=== PATIENT | female | born 1950 | race Caucasian/White ===

== ENCOUNTER 2017-01-09 19:00 | Inpatient (IN) | payer BC, MEDICARE ==
[~2017-01-09] VITALS: Ht 154.9 cm; Wt 84.4 kg
[~2017-01-09 19:00] MED LIST: ALPR-138 PO; AMBI5TAB PO; ASPI81 PO; FLECTOR PATCH ID; GLUC500C56 PO; TAB-TAB PO; VITA250T32 PO; [UNRECOGNIZED DRUG - CODE] PO; [UNRECOGNIZED DRUG - OTHER] PO
[2017-01-09 19:17] VITALS: BP 142/78; PULSE 122; RESP 20; TEMP 97.8; O2SAT 95
--- NOTE | 2017-01-09 19:32 | PD ---
HPI Chief Complaint: Psychiatric Symptoms Time Seen by Provider: 19:10 Travel History International Travel<30 days: No Contact w/Intl Traveler<30days: No Traveled to known affect area: No History of Present Illness HPI 66-year-old white female presents to emergency department under Loving act by PD. The patient allegedly had made homicidal statements at home after arguing with her sister and mother. She been living with her mother for approximately 25 years. The patient consumed a pint of Titos Vodka today. The patient alleges an argument with her mother over a stray cat that she has been feeding. Patient also contents her sister has a history of paranoid schizophrenia and calls the police on her routine basis when she is argument with her mother. Patient denies any suicidal homicidal ideation. She admits to recent alcohol consumption. She denies any drugs. No tobacco. Denies any medical complaints. PFSH Past Medical History Narrative Medical Diabetes type 2 Cancer: No Cardiovascular Problems: No Diabetes: Yes (TYPE 2. PER PATIENT) Glaucoma: No Hepatitis: No Hiatal Hernia: No Hypertension: No Psychiatric: No (NO PREVIOUS HISTORY) Respiratory: No Seizures: No Thyroid Disease: No Tetanus Vaccination: < 5 Years Past Surgical History Narrative Surgical Tonsillectomy Oral Surgery: Yes (TONSILLECTOMY) Pacemaker: No Other Surgery: Yes Social History Alcohol Use: Yes (OCCAS.) Tobacco Use: Yes (QUIT 20M0S.) Substance Use: Yes (ON OCCASION) Allergies-Medications (Allergen,Severity, Reaction): Coded Allergies: No Known Allergies (Verified , 07/14/13) Uncoded Allergies: UNKNOWN PAIN MED (Adverse Reaction, Severe, VOMITING, 09/06/08) Reported Meds & Prescriptions Reported Meds & Active Scripts Active Reported Coq-10 (Coenzyme Q10 (Ubidecarenone)) 30 Mg Cap [Flector Patch] 1 Patch ID EVERY OTHER DAY Glucosamine Sulfate/Chondroitin Sulfate (Glucosamine/Chondroitin) Tab 1 Tab PO DAILY Vitamin C (Ascorbic Acid) 250 Mg Tab 250 Mg PO DAILY Multivitamin (Multivitamins) 1 Tab Tab 1 Tab PO DAILY [Lycene] 1 Tab PO DAILY Aspirin 81 Mg Tab 81 Mg PO DAILY Xanax (Alprazolam) 0.25 Mg Tab 0 PO PRN UNKNOWN DOSE Review of Systems General / Constitutional: No: Fever Eyes: No: Visual changes HENT: No: Headaches Cardiovascular: No: Chest Pain or Discomfort Respiratory: No: Shortness of Breath Gastrointestinal: No: Abdominal Pain Genitourinary: No: Dysuria Musculoskeletal: No: Pain Skin: No Rash Neurologic: No: Weakness Psychiatric: Positive: Depression, Mood Disorder, No: Anxiety, Suicidal Ideations, Disorder of Thought, Substance Abuse, Homicidal Ideation Endocrine: No: Polydipsia Hematologic/Lymphatic: No: Easy Bruising Physical Exam Narrative GENERAL: Well-nourished, well-developed patient. Patient is allowed. Hard to redirect at times. SKIN: Warm and dry. HEAD: Normocephalic and atraumatic. EYES: No scleral icterus. No injection or drainage. ENT: No nasal drainage noted. Mucous membranes pink. Airway patent. NECK: Supple, trachea midline. Moves head freely without obvious discomfort. CARDIOVASCULAR: Regular rate and rhythm without murmurs, gallops, or rubs. RESPIRATORY: Breath sounds equal bilaterally. No accessory muscle use. GASTROINTESTINAL: Abdomen soft, non-tender, nondistended. EXTREMITIES: No cyanosis or edema. BACK: Nontender without obvious deformity. No CVA tenderness. NEURO: Patient is alert and oriented. no sensorimotor deficits. Nonfocal. Normal speech. PSYCH: No delusions. No auditory or visual hallucinations. Insight good, judgment poor Data Data Last Documented VS Vital Signs Date Time Temp Pulse Resp B/P (MAP) Pulse Ox O2 Delivery O2 Flow Rate FiO2 01/09/17 19:17 97.8 122 20 142/78 (99) 95 Room Air Orders Orders Complete Blood Count With Diff (01/09/17 19:08) Comprehensive Metabolic Panel (01/09/17 19:08) Urinalysis - C+S If Indicated (01/09/17 19:08) Psych Screen (01/09/17 19:08) Drug Screen, Random Urine (01/09/17 19:08) Alcohol (Ethanol) (01/09/17 19:08) Salicylates (Aspirin) (01/09/17 19:08) Tylenol (Acetaminophen) (01/09/17 19:08) Labs Laboratory Tests Test 01/09/17 19:15 White Blood Count 7.6 TH/MM3 Red Blood Count 5.56 MIL/MM3 Hemoglobin 17.1 GM/DL Hematocrit 50.0 % Mean Corpuscular Volume 90.0 FL Mean Corpuscular Hemoglobin 30.8 PG Mean Corpuscular Hemoglobin Concent 34.3 % Red Cell Distribution Width 13.4 % Platelet Count 217 TH/MM3 Mean Platelet Volume 8.2 FL Neutrophils (%) (Auto) 66.5 % Lymphocytes (%) (Auto) 22.5 % Monocytes (%) (Auto) 8.8 % Eosinophils (%) (Auto) 1.7 % Basophils (%) (Auto) 0.5 % Neutrophils # (Auto) 5.0 TH/MM3 Lymphocytes # (Auto) 1.7 TH/MM3 Monocytes # (Auto) 0.7 TH/MM3 Eosinophils # (Auto) 0.1 TH/MM3 Basophils # (Auto) 0.0 TH/MM3 CBC Comment DIFF FINAL Differential Comment Urine Color LIGHT-YELLOW Urine Turbidity CLEAR Urine pH 5.5 Urine Specific [place] 1.004 Urine Protein 30 mg/dL Urine Glucose (UA) 1000 mg/dL Urine Ketones NEG mg/dL Urine Occult Blood NEG Urine Nitrite NEG Urine Bilirubin NEG Urine Urobilinogen LESS THAN 2.0 MG/DL Urine Leukocyte Esterase SMALL Urine WBC 4 /hpf Microscopic Urinalysis Comment CULT NOT INDICATED Blood Urea Nitrogen 16 MG/DL Creatinine 0.78 MG/DL Random Glucose 116 MG/DL Total Protein 7.6 GM/DL Albumin 3.9 GM/DL Calcium Level 10.2 MG/DL Alkaline Phosphatase 94 U/L Aspartate Amino Transf (AST/SGOT) 62 U/L Alanine Aminotransferase (ALT/SGPT) 90 U/L Total Bilirubin 0.5 MG/DL Sodium Level 142 MEQ/L Potassium Level 4.0 MEQ/L Chloride Level 110 MEQ/L Carbon Dioxide Level 19.8 MEQ/L Anion Gap 12 MEQ/L Estimat Glomerular Filtration Rate 74 ML/MIN Salicylates Level LESS THAN 1.7 MG/DL Urine Opiates Screen NEG Acetaminophen Level LESS THAN 2.0 MCG/ML Urine Barbiturates Screen NEG Urine Amphetamines Screen NEG Urine Benzodiazepines Screen NEG Urine Cocaine Screen NEG Urine Cannabinoids Screen NEG Ethyl Alcohol Level 204 MG/DL MDM Medical Decision Making Medical Screen Exam Complete: Yes Emergency Medical Condition: Yes Medical Record Reviewed: Yes Interpretation(s) Laboratory Tests Test 01/09/17 19:15 White Blood Count 7.6 TH/MM3 Red Blood Count 5.56 MIL/MM3 Hemoglobin 17.1 GM/DL Hematocrit 50.0 % Mean Corpuscular Volume 90.0 FL Mean Corpuscular Hemoglobin 30.8 PG Mean Corpuscular Hemoglobin Concent 34.3 % Red Cell Distribution Width 13.4 % Platelet Count 217 TH/MM3 Mean Platelet Volume 8.2 FL Neutrophils (%) (Auto) 66.5 % Lymphocytes (%) (Auto) 22.5 % Monocytes (%) (Auto) 8.8 % Eosinophils (%) (Auto) 1.7 % Basophils (%) (Auto) 0.5 % Neutrophils # (Auto) 5.0 TH/MM3 Lymphocytes # (Auto) 1.7 TH/MM3 Monocytes # (Auto) 0.7 TH/MM3 Eosinophils # (Auto) 0.1 TH/MM3 Basophils # (Auto) 0.0 TH/MM3 CBC Comment DIFF FINAL Differential Comment Urine Color LIGHT-YELLOW Urine Turbidity CLEAR Urine pH 5.5 Urine Specific [place] 1.004 Urine Protein 30 mg/dL Urine Glucose (UA) 1000 mg/dL Urine Ketones NEG mg/dL Urine Occult Blood NEG Urine Nitrite NEG Urine Bilirubin NEG Urine Urobilinogen LESS THAN 2.0 MG/DL Urine Leukocyte Esterase SMALL Urine WBC 4 /hpf Microscopic Urinalysis Comment CULT NOT INDICATED Blood Urea Nitrogen 16 MG/DL Creatinine 0.78 MG/DL Random Glucose 116 MG/DL Total Protein 7.6 GM/DL Albumin 3.9 GM/DL Calcium Level 10.2 MG/DL Alkaline Phosphatase 94 U/L Aspartate Amino Transf (AST/SGOT) 62 U/L Alanine Aminotransferase (ALT/SGPT) 90 U/L Total Bilirubin 0.5 MG/DL Sodium Level 142 MEQ/L Potassium Level 4.0 MEQ/L Chloride Level 110 MEQ/L Carbon Dioxide Level 19.8 MEQ/L Anion Gap 12 MEQ/L Estimat Glomerular Filtration Rate 74 ML/MIN Salicylates Level LESS THAN 1.7 MG/DL Urine Opiates Screen NEG Acetaminophen Level LESS THAN 2.0 MCG/ML Urine Barbiturates Screen NEG Urine Amphetamines Screen NEG Urine Benzodiazepines Screen NEG Urine Cocaine Screen NEG Urine Cannabinoids Screen NEG Ethyl Alcohol Level 204 MG/DL Differential Diagnosis MDM: High Differential diagnoses: Schizophrenia, schizoaffective disorder, bipolar, anxiety, depression, adjustment reaction, mood disorder NOS, ODD, depressive disorder NOS, dementia, dementia with agitation, psychosis NOS, substance induced mood disorder, DMDD, Asperger syndrome, infection,electrolyte abnormality, malingering. Narrative Course Mental health screening discussed with the patient. Psychiatric screen ordered. Patient's been medically cleared. This is alcohol induced mood disorder Diagnosis Primary Impression: Medical clearance for psychiatric admission Additional Impression: Alcohol-induced mood disorder Condition: Stable Justin Vela Jan 09, 2017 19:32
[2017-01-09 19:37] LABS: BASOPHIL % 0.5 % (0.0-2.0); EOSINOPHIL # 0.1 TH/MM3 (0-0.4); EOSINOPHIL % 1.7 % (0.0-4.0); HEMO FLAGS DIFF FINAL; LYMPH % 22.5 % (9.0-44.0); LYMPHOCYTE # 1.7 TH/MM3 (1.0-4.8); MEAN CORPUSCULAR HEMOGLOBIN 30.8 PG (27.0-34.0); MEAN CORPUSCULAR HGB CONC 34.3 % (32.0-36.0); MONO % 8.8 % (0.0-8.0); NEUT % 66.5 % (16.0-70.0); PLATELET COUNT 217 TH/MM3 (150-450); RED BLOOD COUNT 5.56 MIL/MM3 (4.00-5.30); RED CELL DISTRIBUTION WIDTH 13.4 % (11.6-17.2); WHITE BLOOD COUNT 7.6 TH/MM3 (4.0-11.0)
[2017-01-09 20:01] LABS: BLOOD, URINE NEG (NEG); COMMENT (UR) CULT NOT INDICATED; CULTURE IF INDICATED CULT NOT INDICATED; GLUCOSE,URINE 1000 mg/dL (NEG); KETONE, URINE NEG (NEG); NITRITE,URINE NEG (NEG); PH, URINE 5.5 (5.0-8.5); URINE COLOR LIGHT-YELLOW (YELLW/STRAW)
[2017-01-09 20:06] LABS: ALT (GPT) 90 U/L (10-53)
[2017-01-09 20:08] LABS: ALKALINE PHOSPHATASE 94 U/L (45-117); TOTAL BILIRUBIN ADULT 0.5 MG/DL (0.2-1.0)
[2017-01-09 20:11] LABS: ANION GAP 12 MEQ/L (5-15); AST (GOT) 62 U/L (15-37); BICARBONATE 19.8 MEQ/L (21.0-32.0); BLOOD UREA NITROGEN 16 MG/DL (7-18); CHLORIDE 110 MEQ/L (98-107); GLOMERULAR FILTRATION RATE 74 ML/MIN (>89); SODIUM (NA) 142 MEQ/L (136-145)
[2017-01-09 20:12] LABS: ACETAMINOPHEN LESS THAN 2.0 MCG/ML (10.0-30.0); ALCOHOL 204 MG/DL (0-5)
[2017-01-09] MEDS ORDERED: COQ-30CA2 (20:54)
[2017-01-09] MEDS ORDERED: MULTTAB67 PO (20:56)
[2017-01-09] MEDS ORDERED: ALPR.25 PO (20:58)
[2017-01-10 02:14] VITALS: BP 142/76; PULSE 89; RESP 18
[2017-01-10 06:00] VITALS: BP 163/83; PULSE 100; RESP 18; O2SAT 99
[2017-01-10 10:15] VITALS: BP 165/79; PULSE 110; RESP 17; O2SAT 99
[2017-01-10] MEDS ORDERED: LORazepam 2 MG/ML VIAL IV PUSH PRN ×4 (11:30)
[2017-01-10] MEDS ORDERED: LORazepam 2 MG/ML VIAL IM PRN (11:30)
[2017-01-10] MEDS ORDERED: ALUMINUM/MAGNESIUM/SIMETH 30 ML CUP PO PRN (11:30)
[2017-01-10] MEDS ORDERED: LORazepam 1 MG TAB PO PRN ×2 (11:30)
[2017-01-10] MEDS ORDERED: ACETAMINOPHEN 325 MG TAB PO PRN (11:30)
[2017-01-10] MEDS ORDERED: MAGNESIUM HYDROXIDE SUSP 30 ML CUP PO PRN (11:30)
[2017-01-10] MEDS ORDERED: LORazepam 2 MG TAB PO PRN (11:30)
[2017-01-10] MEDS ORDERED: FLUMAZENIL 0.5 MG/5 ML VIAL IV PUSH PRN (11:30)
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
--- NOTE | 2017-01-10 17:32 | PD.CONS ---
[facility] By [facility] service Reason for Consult Medical management Primary Care Physician Jian Flores M.D. Diagnoses: History of Present Illness Patient is a 66-year-old female with history of depression, diabetes type 2 taking metformin 500 mg half tablet once to twice a days admitted under psychiatry services apparently a brother was concerned about her. Patient admitted that her dad around this time of the year. Patient states that around this time of the year January to be the worst year for her because this is around the time when her father . Apparently every Tuesday patient went shopping and admitted to taking half point of vodka Patient was brought in here by a family member because of behavioral changes. [facility] hospitalists consulted for history of diabetes type 2 and obesity. With regards to her diabetes patient states she takes metformin 500 mg half tab twice a day. States good hypoglycemic awareness. Review of Systems Constitutional: DENIES: Fever, Weight loss, Chills, Change in appetite Eyes: DENIES: Blurred vision, Double Vision Ears, nose, mouth, throat: DENIES: Tinnitus, Ear Pain, Epistaxis, Odynophagia Respiratory: DENIES: Cough, Hemoptysis, Sputum production, Shortness of breath Cardiovascular: DENIES: Chest pain, Palpitations, Dyspnea on Exertion, Lower Extremity Edema, Orthopnea Gastrointestinal: DENIES: Black stools, Bloody stools, Difficulty Swallowing, Anorexia Genitourinary: DENIES: Urgency, Hematuria, Vaginal discharge Musculoskeletal: DENIES: Joint pain, Stiffness Integumentary: DENIES: Pruritus Hematologic/lymphatic: DENIES: Bruising Immunologic/allergic: DENIES: Urticaria Neurologic: DENIES: Headache, Speech Problems, Tremor Psychiatric: DENIES: Suicidal Ideation, Homicidal Ideation Past Family Social History Allergies: Coded Allergies: No Known Allergies (Verified Allergy, Unknown, 01/10/17) Uncoded Allergies: UNKNOWN PAIN MED (Adverse Reaction, Severe, VOMITING, 09/06/08) Past Medical History [id number] denies any history of hypertension Past Surgical History Left breast cyst removal 2 pathology benign Reported Medications See EMR. For active medications currently. As an outpatient as stated metformin 500 mg half tab twice a day. Active Ordered Medications See EMR Family History Positive history of diabetes, depression Social History She admitted to drink half pint of vodka. Quit smoking 9 years ago Physical Exam Vital Signs Vital Signs Date Time Temp Pulse Resp B/P (MAP) Pulse Ox O2 Delivery O2 Flow Rate FiO2 01/10/17 13:37 01/10/17 10:15 110 17 165/79 (107) 99 Room Air 01/10/17 06:00 100 18 163/83 (109) 99 01/10/17 02:14 89 18 142/76 (98) 01/09/17 19:17 97.8 122 20 142/78 (99) 95 Room Air Physical Exam GENERAL: This is a well-nourished, well-developed patient, in no apparent distress. SKIN: No rashes small dry wound on the forearm per patient from a cat bite on week ago HEAD: Atraumatic. Normocephalic. No temporal or scalp tenderness. EYES: Pupils equal round and reactive. Extraocular motions intact. No scleral icterus. No injection or drainage. ENT: Nose without bleeding, Throat without erythema, tonsillar hypertrophy or exudate. Uvula midline. Airway patent. NECK: Trachea midline. No JVD or lymphadenopathy. Supple, nontender, no meningeal signs. CARDIOVASCULAR: Regular rate and rhythm without murmurs, gallops, or rubs. RESPIRATORY: Clear to auscultation. Breath sounds equal bilaterally. No wheezes , rales, or rhonchi. GASTROINTESTINAL: Abdomen soft, non-tender, nondistended. . No guarding. MUSCULOSKELETAL: Extremities without clubbing, cyanosis, or edema. No joint tenderness, effusion, or edema noted. No calf tenderness. Negative Homans sign bilaterally. Gait steady NEUROLOGICAL: Awake and alert. Cranial nerves II through XII intact. Motor and sensory grossly within normal limits. Five out of 5 muscle strength in all muscle groups. Normal speech. Laboratory Laboratory Tests Test 01/09/17 19:15 White Blood Count 7.6 Red Blood Count 5.56 Hemoglobin 17.1 Hematocrit 50.0 Mean Corpuscular Volume 90.0 Mean Corpuscular Hemoglobin 30.8 Mean Corpuscular Hemoglobin Concent 34.3 Red Cell Distribution Width 13.4 Platelet Count 217 Mean Platelet Volume 8.2 Neutrophils (%) (Auto) 66.5 Lymphocytes (%) (Auto) 22.5 Monocytes (%) (Auto) 8.8 Eosinophils (%) (Auto) 1.7 Basophils (%) (Auto) 0.5 Neutrophils # (Auto) 5.0 Lymphocytes # (Auto) 1.7 Monocytes # (Auto) 0.7 Eosinophils # (Auto) 0.1 Basophils # (Auto) 0.0 CBC Comment DIFF FINAL Differential Comment Urine Color LIGHT-YELLOW Urine Turbidity CLEAR Urine pH 5.5 Urine Specific Malcom 1.004 Urine Protein 30 Urine Glucose (UA) 1000 Urine Ketones NEG Urine Occult Blood NEG Urine Nitrite NEG Urine Bilirubin NEG Urine Urobilinogen LESS THAN 2.0 Urine Leukocyte Esterase SMALL Urine WBC 4 Microscopic Urinalysis Comment CULT NOT INDICATED Blood Urea Nitrogen 16 Creatinine 0.78 Random Glucose 116 Total Protein 7.6 Albumin 3.9 Calcium Level 10.2 Alkaline Phosphatase 94 Aspartate Amino Transf (AST/SGOT) 62 Alanine Aminotransferase (ALT/SGPT) 90 Total Bilirubin 0.5 Sodium Level 142 Potassium Level 4.0 Chloride Level 110 Carbon Dioxide Level 19.8 Anion Gap 12 Estimat Glomerular Filtration Rate 74 Salicylates Level LESS THAN 1.7 Urine Opiates Screen NEG Acetaminophen Level LESS THAN 2.0 Urine Barbiturates Screen NEG Urine Amphetamines Screen NEG Urine Benzodiazepines Screen NEG Urine Cocaine Screen NEG Urine Cannabinoids Screen NEG Ethyl Alcohol Level 204 Result Diagram: 01/09/17191401/09/171914 Assessment and Plan Assessment and Plan 66-year-old female admitted under psychiatry services because of express homicidal ideations. After a fight with her sister. Positive history of depression History of depression per psychiatry Diabetes type 2. Per patient has good hypoglycemic awareness she follows closely with her primary care physician Dr. Flores. get A1C. check FS bid and record per patient - she wants to get off meds. d/w her. she takes metformin 500 mg 1/2 tab bid. will monitor off meds History of hyperlipidemia. Per patient she has taken off herself off the statins. At one point she was on pravastatin ADA low-cholesterol diet Alcohol abuse. Patient denies any chronic use States that she drank because she had a fight with her sister who called the police. Elevated LFTs transaminases. Nonobstructive in pattern. This could be from fatty liver or from alcohol use If patient stays here we can monitor or outpatient follow-up through PCP Patient counseled on weight reduction and alcohol use Obesity with BMI of 35.2. Patient is actually very actively involved in a weight reduction program. 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 Erythrocytosis reviewed CBC from 2015- near baseline encourage po. not actively smoking Thank you for this consult we'll follow patient in-house with you Code Status Patient Lashonda Elizabeth MD Jan 10, 2017 17:32
[2017-01-10 17:57] VITALS: BP 150/74; PULSE 94; RESP 18; TEMP 98.5; O2SAT 96
[2017-01-11 06:03] VITALS: BP 121/59; PULSE 80; RESP 18; TEMP 98.8; O2SAT 99
[2017-01-11 08:04] LABS: HEMATOCRIT 49.5 % (35.0-46.0); MEAN CELL VOLUME 90.4 FL (80.0-100.0); MEAN CORPUSCULAR HEMOGLOBIN 31.4 PG (27.0-34.0); MEAN CORPUSCULAR HGB CONC 34.7 % (32.0-36.0); PLATELET COUNT 196 TH/MM3 (150-450); RED BLOOD COUNT 5.48 MIL/MM3 (4.00-5.30); RED CELL DISTRIBUTION WIDTH 13.4 % (11.6-17.2); WHITE BLOOD COUNT 7.4 TH/MM3 (4.0-11.0)
[2017-01-11 08:08] LABS: HEMO FLAGS AUTO DIFF
[2017-01-11 08:26] LABS: ALT (GPT) 78 U/L (10-53); ANION GAP 10 MEQ/L (5-15); AST (GOT) 52 U/L (15-37); BICARBONATE 24.1 MEQ/L (21.0-32.0); BLOOD UREA NITROGEN 13 MG/DL (7-18); CHLORIDE 104 MEQ/L (98-107); GLOMERULAR FILTRATION RATE 76 ML/MIN (>89); POTASSIUM 3.8 MEQ/L (3.5-5.1); SODIUM (NA) 138 MEQ/L (136-145)
[2017-01-11 08:52] LABS: ALKALINE PHOSPHATASE 99 U/L (45-117); HDL CHOLESTEROL 90.2 MG/DL (40.0-60.0); LDL CHOLESTEROL 176 MG/DL (0-99); TOTAL BILIRUBIN ADULT 1.8 MG/DL (0.2-1.0)
[2017-01-11 09:30] LABS: BANDS 2 % (0-6); EOSINOPHILS 1 % (0-4); NEUTROPHIL # MANUAL DIFF 4.8 TH/MM3 (1.8-7.7); PLATELET ESTIMATE SMEAR NORMAL (NORMAL); PLATELET MORPHOLOGY NORMAL (NORMAL); POLYS (SEG NEUTROPHILS) 63 % (16-70); SCAN/DIFF FINAL DIFF MANUAL; WBC DIFF SAMPLE 100
--- NOTE | 2017-01-11 13:51 | HHI.PYPN ---
Subjective Remarks Patient seen for follow-up, chart reviewed. Patient is a 66 y/o woman , single, domiciled with mother, retired on social security income, with past psychiatric history who was brought in under [place] for homicidal ideations toward sister and mother after argument in the context of alcohol intoxication who was admitted to the inpatient psychiatry unit for further evaluation and management. Patient states that she usually drinks alcohol twice per week and usually one drink but that prior to admission had bought 1 pint of vodka which she had been drinking until becoming inebriated. She states having argued with her sister and mother over a stray cat which she states had threaten to slap her sister during the arguement. Patient had stated having become irate which led the sister to call the police which brought her to the hospital. She states that she is not a violent person and that she almost never drinks that much. She reports having no problems with sleep, appetite, energy, concentration , mood lately being "fine" but noted to have become more sad recently as it was her birthday today and that her father had 3 years ago. She denies feeling helpless or hopeless and denies any SI. Currently she reports feeling "fine", denies SI, HI, AVH or delusions at this time. Past psychiatric history: denies previous psychiatric diagnoses, hospitalizations, suicide attempts or self injurious behavior. Previous medication trials: alprazolam 0.5mg HS which she took for 6 years but stopped in 2016. She denies any history of abuse Family psychiatric history: Aunt with alcohol use disorder; no suicides in the family Substance use history: ETOH use 2 times per week, usually 1 drink, denies use of any other substance; denies previous detox or rehabilitation programs. Past medical history: HTN, HLD Allergies: sulfas Social history: single, no children, domiciled with mother, retired, highest education: 12th grade. Denies any legal history. Review of Systems Except as stated in HPI: all other systems reviewed are Neg Mental Status Examination Appearance: Appropriate Consciousness: Alert Orientation: x4 Motor Activity: Normal gait Speech: Unremarkable Language: Adequate Fund of Knowledge: Adequate Attention and Concentration: Adequate Memory: Unremarkable Mood: Anxious Affect: Anxious Thought Process & Associations: Intact, Linear Thought Content: Appropriate Hallucination Type: None Delusion Type: None Suicidal Ideation: No Suicidal Plan: No Suicidal Intention: No Homicidal Ideation: No Homicidal Plan: No Homicidal Intention: No Insight: Fair Judgment: Impulsive Results Labs Labs reviewed Test 01/11/17 07:05 White Blood Count 7.4 TH/MM3 Red Blood Count 5.48 MIL/MM3 Hemoglobin 17.2 GM/DL Hematocrit 49.5 % Mean Corpuscular Volume 90.4 FL Mean Corpuscular Hemoglobin 31.4 PG Mean Corpuscular Hemoglobin Concent 34.7 % Red Cell Distribution Width 13.4 % Platelet Count 196 TH/MM3 Mean Platelet Volume 8.9 FL CBC Comment AUTO DIFF Differential Total Cells Counted 100 Neutrophils % (Manual) 63 % Band Neutrophils % 2 % Lymphocytes % 29 % Monocytes % 5 % Eosinophils % 1 % Neutrophils # (Manual) 4.8 TH/MM3 Differential Comment FINAL DIFF MANUAL Platelet Estimate NORMAL Platelet Morphology Comment NORMAL Red Cell Morphology Comment NORMAL Blood Urea Nitrogen 13 MG/DL Creatinine 0.76 MG/DL Random Glucose 132 MG/DL Total Protein 7.5 GM/DL Albumin 4.0 GM/DL Calcium Level 9.4 MG/DL Alkaline Phosphatase 99 U/L Aspartate Amino Transf (AST/SGOT) 52 U/L Alanine Aminotransferase (ALT/SGPT) 78 U/L Total Bilirubin 1.8 MG/DL Sodium Level 138 MEQ/L Potassium Level 3.8 MEQ/L Chloride Level 104 MEQ/L Carbon Dioxide Level 24.1 MEQ/L Anion Gap 10 MEQ/L Estimat Glomerular Filtration Rate 76 ML/MIN Triglycerides Level 157 MG/DL Cholesterol Level 298 MG/DL LDL Cholesterol 176 MG/DL HDL Cholesterol 90.2 MG/DL Cholesterol/HDL Ratio 3.30 RATIO Vitamin B12 Level 510 PG/ML 25-Hydroxy Vitamin D Total 34.2 ng/ML Thyroid Stimulating Hormone 3rd Gen 1.520 uIU/ML Vitals/IOs Vital Signs Date Time Temp Pulse Resp B/P (MAP) Pulse Ox O2 Delivery O2 Flow Rate FiO2 01/11/17 06:03 98.8 80 18 121/59 (79) 99 01/10/17 10:15 Room Air Assessment & Plan Problem List: (1) Adjustment disorder with mixed disturbance of emotions and conduct ICD Codes: F43.25 - Adjustment disorder with mixed disturbance of emotions and conduct Status: Acute (2) Alcohol abuse ICD Codes: F10.10 - Alcohol abuse, uncomplicated Assessment & Plan Patient currently with alcohol use which is likley being underreported by patient and likely contributed to recent behavior. Patient denies any depressive symptoms at this time. Patient will be continued to be observed for mood and behavior. Will not start any psychotropic medications at this time. Patient likely will benefit from referral to outpatient services and rehabiliation program for substance use although patient does not recognize nor accept problems with alcohol use. Discharge planning in progress. Justification for Cont. Inpt. At risk for further decompensation if at lower level of care. Discharge Planning Patient to return back to her residence once discharged. Fredy Hugo MD Jan 11, 2017 13:51
[2017-01-11 16:36] LABS: HEMOGLOBIN A1a 0.9 %; HEMOGLOBIN A1b 1.9 %; HEMOGLOBIN Ao 84.5 %; HEMOGLOBIN LA1C 2.3 %; HEMOGLOBIN P3 3.9 %
--- NOTE | 2017-01-11 16:36 | HHI.PR ---
Objective Vitals Vital Signs Date Time Temp Pulse Resp B/P (MAP) Pulse Ox O2 Delivery O2 Flow Rate FiO2 01/11/17 06:03 98.8 80 18 121/59 (79) 99 01/10/17 17:57 98.5 94 18 150/74 (99) 96 Result Diagram: 01/11/17 0705 01/11/17 0705 Lashonda Elizabeth MD Jan 11, 2017 16:36
--- NOTE | 2017-01-11 16:56 | HHI.PR ---
Subjective Remarks patient doing great no complains smiling and interactive HR 85/min regular Objective Vitals Vital Signs Date Time Temp Pulse Resp B/P (MAP) Pulse Ox O2 Delivery O2 Flow Rate FiO2 01/11/17 06:03 98.8 80 18 121/59 (79) 99 01/10/17 17:57 98.5 94 18 150/74 (99) 96 Result Diagram: 01/11/1770401/11/17704 Objective Remarks awake and alert, oriented x 3 anicteric lungs clear regular rhythm abdomen soft extremities no edema gait steady A/P Assessment and Plan 66-year-old female admitted under psychiatry services because of express homicidal ideations. After a fight with her sister. Positive history of depression History of depression per psychiatry Diabetes type 2. Per patient has good hypoglycemic awareness she follows closely with her primary care physician Dr. Flores. get A1C- pending . check FS bid and record- good readings per patient - she wants to get off meds. d/w her. she takes metformin 500 mg 1/2 tab bid. will monitor off meds History of hyperlipidemia. d/w her Lipid panel LDL- elevated low cholesterol diet- get nutrition/dietitian consult will not start statins with elevated LFTs Per patient she has taken off herself off the statins. At one point she was on pravastatin ADA low-cholesterol diet Alcohol abuse. Patient denies any chronic use States that she drank because she had a fight with her sister who called the police. Elevated LFTs transaminases. Nonobstructive in pattern. This could be from fatty liver or from alcohol use If patient stays here we can monitor or outpatient follow-up through PCP Patient counseled on weight reduction and alcohol use Obesity with BMI of 35.2. Patient is actually very actively involved in a weight reduction program. 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 Erythrocytosis- chronic reviewed CBC from 2014- near baseline this is ff closely by her PCP- Dr. Min- who at one time [facility] about getting a BM biopsy - but she refused encourage po. not actively smoking OP ff up if DC- OP ff up with her PCP- d/w her at length Lashonda Elizabeth MD Jan 11, 2017 16:56
--- NOTE | 2017-01-11 18:07 | EKG ---
Date Performed: 01/11/2017 Time Performed: 08:56:54 PTAGE: 67 years EKG: Sinus rhythm SEPTAL MYOCARDIAL INFARCTION , OF INDETERMINATE AGE ABNORMAL ECG Compared to prior tracing no signif icant change PREVIOUS TRACING : 09/09/2008 12.23 DOCTOR: Keira Preston Interpretating Date/Time 01/11/2017 18:05:48
[2017-01-11 18:22] VITALS: BP 141/72; PULSE 83; RESP 18; TEMP 98.2; O2SAT 99
[2017-01-12 06:40] VITALS: BP 152/72; PULSE 84; RESP 18; TEMP 98.3; O2SAT 98
--- NOTE | 2017-01-12 08:52 | PD.TTN ---
Patient Problems 1. Discharge planning 2. Medication compliance 3. Knowledge deficit 4. Lack of coping skills Progress Toward Goals Provider Present: Dr. Kelvin Hugo Provider Input: Patient was kept at hosptial for observation after increased alcohol intake. Once patient is stablized today, she will be able to return back to her home with appropriate follow up care. Nurse(s) Input: Patient is pleasant and cooperative on the unit. Patient denies SI/HI currently. Psych Therapist Input: Patient is cooperative and calm. Patient denies having an issue with substance abuse, more specifically alcohol. Patient minimizes admission and states "I was just overwhelmed." Patient states that she feels safe to return back home. Counselor spoke with mother in regards to discharge. Mother states that she feels comfortable and wants patient to return home. Group Spec/RT/OT/CARTER Present: EMMA Angel Group Spec/RT/OT/CARTER Input: Patient attends and participates in group actiview with appropriate behavior and is pleasant. Leslee Garces RMI Jan 12, 2017 08:52
--- NOTE | 2017-01-12 09:06 | HHI.PR ---
Subjective Remarks resting comfortably with no distress. denies pain. no new complaints. hoping that she would go home soon. Objective Vitals Vital Signs Date Time Temp Pulse Resp B/P (MAP) Pulse Ox O2 Delivery O2 Flow Rate FiO2 01/12/17 06:40 98.3 84 18 152/72 (98) 98 01/11/17 18:22 98.2 83 18 141/72 (95) 99 Result Diagram: 01/11/17 0701/11/17 0705 Objective Remarks GENERAL: This is a well-nourished, well-developed patient, in no apparent distress. CARDIOVASCULAR: Regular rate and regular rhythm without murmurs, gallops, or rubs. RESPIRATORY: Clear to auscultation. Breath sounds equal bilaterally. No wheezes , rales, or rhonchi. GASTROINTESTINAL: Abdomen soft, non-tender, nondistended. Normal, active bowel sounds MUSCULOSKELETAL: Extremities without clubbing, cyanosis, or edema. NEURO: Alert & Oriented x4 to person, place, time, situation. Moves all ext x4 Medications and IVs Current Medications Lorazepam (Ativan) 1 mg Q6H PRN PO MODERATE TO SEVERE ANXIETY; Start 01/10/17 at 11:30 Lorazepam (Ativan Inj) 1 mg Q6H PRN IM MODERATE TO SEVERE ANXIETY; Start 01/10 at 11:30 Acetaminophen (Tylenol) 650 mg Q4H PRN PO Pain 1-5 or Temp >101F; Start at 11:30 Magnesium Hydroxide (Milk Of Magnesia Liq) 30 ml DAILY PRN PO CONSTIPATION; Start 01/10/17 at 11:30 Al Hydrox/Mg Hydrox/Simethicone (Mag-Al Plus Susp Liq) 30 ml Q6H PRN PO DYSPEPSIA; Start 01/10/17 at 11:30 Flumazenil (Romazicon Inj) 0.2 mg Q1M PRN IV PUSH SEE LABEL COMMENTS; Start at 11:30 Lorazepam (Ativan) 1 mg Q4H PRN PO CIWA 8 - 10; Start 01/10/17 at 11:30 Lorazepam (Ativan Inj) 1 mg Q4H PRN IV PUSH CIWA 8 - 10; Start 01/10/17 at 11: 30 Lorazepam (Ativan) 2 mg Q2H PRN PO CIWA 11-14; Start 01/10/17 at 11:30 Lorazepam (Ativan Inj) 2 mg Q2H PRN IV PUSH CIWA 11-14; Start 01/10/17 at 11: 30 Lorazepam (Ativan Inj) 2 mg Q1H PRN IV PUSH CIWA 15-20; Start 01/10/17 at 11: 30 Lorazepam (Ativan Inj) 2 mg Q15M PRN IV PUSH CIWA > 20; Start 01/10/17 at 11: 30 A/P Assessment and Plan A/P History of depression per psychiatry Diabetes type 2. Per patient has good hypoglycemic awareness she follows closely with her primary care physician Dr. Flores. get A1C- 6.1 . per patient - she wants to get off meds. d/w her. she's off her metformin per her PCP. f/u as outpatient. History of hyperlipidemia. LDL- elevated low cholesterol diet- dietitian consulted will not start statins with elevated LFTs Per patient she has taken off herself off the statins. At one point she was on pravastatin ADA low-cholesterol diet Alcohol abuse. Patient denies any chronic use States that she drank because she had a fight with her sister who called the police. Elevated LFTs transaminases. Nonobstructive in pattern. This could be from fatty liver or from alcohol use If patient stays here we can monitor or outpatient follow-up through PCP Erythrocytosis- chronic reviewed CBC from 2014- near baseline this is ff closely by her PCP- Dr. Min- encourage po. not actively smoking OP ff up [facility] will sign off and see her as needed. Demetria Sampson MD Jan 12, 2017 09:06
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
== END 2017-01-12 14:40 | disposition home or self-care (01) | DRG 882 ==
LOC: NEPJ 19:00 → NEDA 01-10 11:25 → H260 01-10 13:45
PROVIDERS: ADMIT Student in an Organized Health Care Education/Training Program; ATTEND Student in an Organized Health Care Education/Training Program
DX: F43.25 Adjustment disorder with mixed disturbance of emotions and conduct (principal); D75.1 Secondary polycythemia; I10 Essential (primary) hypertension; F10.14 Alcohol abuse with alcohol-induced mood disorder; R45.850 Homicidal ideations; E66.9 Obesity, unspecified; E11.9 Type 2 diabetes mellitus without complications; F10.120 Alcohol abuse with intoxication, uncomplicated; Y90.7 Blood alcohol level of 200-239 mg/100 ml; E78.5 Hyperlipidemia, unspecified; Z79.84 Long term (current) use of oral hypoglycemic drugs; Z81.8 Family history of other mental and behavioral disorders; Z68.35 Body mass index [BMI] 35.0-35.9, adult
CPT/HCPCS: 80053; 80061; 80307; 81001; 82306; 82607; 82948; 83036; 84443; 85007; 85025; 85027; 93005